=== PATIENT | male | born 1990 | race African-American/Black ===

== ENCOUNTER 2018-08-29 14:03 | Emergency (ER) | payer MEDICAID ==
[~2018-08-29] VITALS: Ht 175.3 cm; Wt 84.0 kg
[~2018-08-29 14:03] MED LIST: CETI5TAB5
[2018-08-29] MEDS ORDERED: KETOROLAC 60MG/2ML VIAL IM STA (18:08)
[2018-08-29 19:55] VITALS: BP 131/85
== END 2018-08-29 19:58 | disposition home or self-care (01) ==
LOC: ER 14:03
DX: S39.012A Strain of muscle, fascia and tendon of lower back, initial encounter (principal); M25.561 Pain in right knee; V89.2XXA Person injured in unspecified motor-vehicle accident, traffic, initial encounter; Y93.89 Activity, other specified; Y92.89 Other specified places as the place of occurrence of the external cause; Y99.8 Other external cause status
CPT/HCPCS: 71046; 72100; 96372; 99283; J1885